=== PATIENT | female | born 1980 | race Caucasian/White ===

== ENCOUNTER 2017-12-15 08:33 | Emergency (ER) | payer OTHER ==
[~2017-12-15] VITALS: Ht 165.1 cm; Wt 87.1 kg
[~2017-12-15 08:33] MED LIST: ACETAMINOPHEN-1 EAC1 PO; CEPHALEXIN 500500 M3 PO; HYDROXYZINE HCL25 M1 PO; IBUPROFEN 800800 M1 PO; NOHOMEMEDICATIONS; PEPCID20 MG PO; PREDNISONE 10 M10 MG PO; TRAMADOL 50 MG50 MG PO; TRIAMCINOLONE A80 G2 TOP
[2017-12-15 08:42] VITALS: BP 133/78
[2017-12-15] MEDS ORDERED: PREDNISONE 20 M20 M1 PO (08:46)
[2017-12-15] MEDS ORDERED: TRIAMCINOLONE A15 G1 TP (08:46)
== END 2017-12-15 08:57 | disposition home or self-care (01) ==
LOC: M.ERS 08:33
DX: L25.9 Unspecified contact dermatitis, unspecified cause (principal); F31.9 Bipolar disorder, unspecified

== ENCOUNTER 2018-01-14 13:18 | Emergency (ER) | payer OTHER ==
[~2018-01-14] VITALS: Ht 165.1 cm; Wt 84.4 kg
[~2018-01-14 13:18] MED LIST changes: +PREDNISONE 20 M20 M1 PO; +TRIAMCINOLONE A15 G1 TP
[2018-01-14] MEDS ORDERED: PREDNISONE 10 M10 MG PO (14:52)
[2018-01-14] MEDS ORDERED: NORCO 5-325 TA1 EACH PO (14:52)
[2018-01-14] MEDS ORDERED: FLEXERIL PO (14:52)
[2018-01-14 15:02] VITALS: BP 112/62
== END 2018-01-14 15:07 | disposition home or self-care (01) ==
LOC: M.ERS 13:18
DX: M54.12 Radiculopathy, cervical region (principal); F41.9 Anxiety disorder, unspecified; F31.9 Bipolar disorder, unspecified

== ENCOUNTER 2018-06-12 06:21 | Emergency (ER) | payer OTHER ==
[~2018-06-12] VITALS: Ht 165.1 cm; Wt 83.5 kg
[~2018-06-12 06:21] MED LIST changes: +FLEXERIL PO; +NORCO 5-325 TA1 EACH PO
[2018-06-12 07:12] VITALS: BP 110/68
== END 2018-06-12 07:05 | disposition left against medical advice (07) ==
LOC: M.ERS 06:21
DX: Z53.21 Procedure and treatment not carried out due to patient leaving prior to being seen by health care provider (principal)